=== PATIENT | male | born 1990 | race Caucasian/White ===

== ENCOUNTER 2017-04-23 23:22 | Emergency (ER) | payer BC ==
[~2017-04-23] VITALS: Ht 185.4 cm; Wt 84.2 kg
[2017-04-23 23:25] VITALS: BP 132/86
[2017-04-23 23:56] LABS: ADD MIUA? YES; BILIRUBIN NEGATIVE; BLOOD NEGATIVE; COLOR YELLOW ((YELLOW)); GLUCOSE (STRIP) NEGATIVE; KETONES 5; LEUKOCYTES NEGATIVE; NITRITE NEGATIVE; PROTEIN (STRIP) 100; SPECIFIC GRAVITY 1.034 (1.000-1.030); UROBILINOGEN 0.2 MG/DL (0.2-1.0)
[2017-04-24 00:04] LABS: BACTERIA NONE SEEN /HPF; EPITHELIAL CELLS RARE /HPF; MUCUS 2+ /LPF; RED BLOOD CELLS 0-5 /HPF (0-5); UCUL ADDED? NO; WHITE BLOOD CELLS 0-5 /HPF (0-5)
[2017-04-24 00:25] LABS: HEMATOCRIT 42.5 % (38.0-50.0); MCH 29.1 PG (29.0-34.0); MCHC 35.5 G/DL (30.0-36.0); MCV 81.9 FL (86-99); MEAN PLAT.VOLUME 9.9 uM^3 (9.0-12.4); PLATELET COUNT 227 K/uL (156-360); RBC DIS.WIDTH-CV 11.8 % (11.8-14.6); RBC DIS.WIDTH-SD 35.3 % (39-53); RED BLOOD COUNT 5.19 M/uL (4.00-5.50); WHITE BLOOD COUNT 8.1 K/uL (4.1-10.2)
[2017-04-24 00:41] LABS: CHLORIDE 104 mEq/L (99-109); POTASSIUM 3.9 mEq/L (3.7-5.4); SODIUM 138 mEq/L (136-147)
[2017-04-24 00:43] LABS: GLUCOSE 86 mg/dL (70-99)
[2017-04-24 00:44] LABS: ANION GAP 9 MEQ/L (2-14)
[2017-04-24 00:46] LABS: GFR ESTIMATE (CALCULATED) > 59 mL/min/
[2017-04-24 00:47] LABS: UREA NITROGEN (BUN) 18 mg/dL (9-23)
[2017-04-24] MEDS ORDERED: ZOFRAN8 MG PO (01:31)
[2017-04-24] MEDS ORDERED: BENTYL20 MG PO (01:31)
== END 2017-04-24 01:49 | disposition home or self-care (01) ==
LOC: EME 23:22
DX: K52.9 Noninfective gastroenteritis and colitis, unspecified (principal); E86.0 Dehydration; F17.200 Nicotine dependence, unspecified, uncomplicated
CPT/HCPCS: 80048; 81003; 85027; 99281; 99283